=== PATIENT | female | born 2000 | race Caucasian/White ===

== ENCOUNTER 2020-07-22 14:43 | Outpatient (CLI) | payer OTHER ==
[~2020-07-22] VITALS: Ht 177.8 cm; Wt 123.8 kg
[~2020-07-22 14:43] MED LIST: BENTYL 20MG TAB20 MG PO; REGLAN10 MG PO
== END 2020-07-22 16:47 | disposition home or self-care (01) ==
LOC: GENOP 14:43
DX: O46.90 Antepartum hemorrhage, unspecified, unspecified trimester (principal); Z23 Encounter for immunization
CPT/HCPCS: 81001; 90686; G0008; G0463

== ENCOUNTER 2020-08-26 00:42 | Outpatient (CLI) | payer OTHER | END 2020-08-26 03:32 | disposition home or self-care (01) | LOC: GENOP 00:42 | DX: O26.893 Other specified pregnancy related conditions, third trimester (principal); R10.9 Unspecified abdominal pain; Z3A.35 35 weeks gestation of pregnancy | CPT/HCPCS: G0463 ==

== ENCOUNTER → 2020-09-17 | Outpatient (CLI) | payer OTHER ==
[~2020-09-17] MED LIST changes: +COLACE 100MG C100 MG PO; +HYDROCODON-ACE1 EAC4 PO; +IBU600 MG PO; +NIGHTTIME SLEEP25 M1 PO; +PEPCID20 MG PO; +PRENATAL VITAM1 EAC3 PO; +VITAMIN B6100 MG/2.5 PO
== END ==
LOC: GENOP 00:30
DX: O62.9 Abnormality of forces of labor, unspecified (principal); O99.891 Other specified diseases and conditions complicating pregnancy; R10.9 Unspecified abdominal pain; M54.9 Dorsalgia, unspecified; R10.2 Pelvic and perineal pain; Z3A.38 38 weeks gestation of pregnancy
CPT/HCPCS: G0463

== ENCOUNTER 2020-09-23 16:15 | Inpatient (IN) | payer OTHER ==
[~2020-09-23] VITALS: Ht 177.8 cm; Wt 274.0 kg
[~2020-09-23 16:15] MED LIST changes: -COLACE 100MG C100 MG PO; -HYDROCODON-ACE1 EAC4 PO; -IBU600 MG PO; -NIGHTTIME SLEEP25 M1 PO; -PEPCID20 MG PO; -PRENATAL VITAM1 EAC3 PO; -VITAMIN B6100 MG/2.5 PO
[2020-09-23 17:07] LABS: RED BLOOD COUNT 4.28 M/UL (4.00-5.10); WHITE BLOOD COUNT 13.2 K/UL (4.5-11.0)
[2020-09-23] MEDS ORDERED: NIGHTTIME SLEEP25 M1 PO (19:27)
[2020-09-23] MEDS ORDERED: PEPCID20 MG PO (19:29)
[2020-09-23] MEDS ORDERED: PRENATAL VITAM1 EAC3 PO (19:29)
[2020-09-23] MEDS ORDERED: VITAMIN B6100 MG/2.5 PO (19:29)
[2020-09-24] MEDS ORDERED: HYDROCODON-ACE1 EAC4 PO (22:19)
[2020-09-24] MEDS ORDERED: IBU600 MG PO (22:19)
[2020-09-24] MEDS ORDERED: COLACE 100MG C100 MG PO (22:19)
[2020-09-25 06:03] LABS: HEMOGLOBIN 10.7 gm/dl (12.3-15.3)
== END 2020-09-26 17:52 | disposition home or self-care (01) | DRG 807 ==
LOC: GENOP 16:15 → OB 19:00
PROVIDERS: Obstetrics & Gynecology; ADMIT Obstetrics & Gynecology
PROC: 10E0XZZ Delivery of Products of Conception, External Approach (ICD-10-PCS; principal; 2020-09-23)
PROC: 0U7C7ZZ Dilation of Cervix, Via Natural or Artificial Opening (ICD-10-PCS; 2020-09-23)
PROC: 10907ZC Drainage of Amniotic Fluid, Therapeutic from Products of Conception, Via Natural or Artificial Opening (ICD-10-PCS; 2020-09-23)
PROC: 3E033VJ Introduction of Other Hormone into Peripheral Vein, Percutaneous Approach (ICD-10-PCS; 2020-09-23)
PROC: 4A1HXCZ Monitoring of Products of Conception, Cardiac Rate, External Approach (ICD-10-PCS; 2020-09-23)
PROC: 0HQ9XZZ Repair Perineum Skin, External Approach (ICD-10-PCS; 2020-09-23)
DX: O76 Abnormality in fetal heart rate and rhythm complicating labor and delivery (principal); Z37.0 Single live birth; O99.214 Obesity complicating childbirth; E66.9 Obesity, unspecified; Z3A.39 39 weeks gestation of pregnancy; O70.0 First degree perineal laceration during delivery
CPT/HCPCS: 36415; 51702; 80307; 81001; 82800; 85014; 85018; 85025; J2001; J2590; J2795; J7120; Q0177; U0003